=== PATIENT | male | born 1955 | race Caucasian/White ===

== ENCOUNTER → 2018-03-05 | Outpatient (CLI) | payer MEDICAID ==
[~2018-03-05] MED LIST: REGADENOSON 0.4 MG/5 ML SYRINGE IV ONE
--- NOTE | 2018-03-05 12:09 | ECHOF ---
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 This was a technically difficult study with suboptimal views. The left ventricular size is normal. There is severe concentric left ventricular hypertrophy. Ove rall left ventricular systolic function is normal with, an EF between 55 - 60 %. The right ventricle is normal in size. LA is severely dilated >40 ml/m2 The right atrium is normal in size. 3 ml of Lumason was utilized for enhancement of images. There is mild aortic valve sclerosis. Mild mitral annular calcification present. [id number] mitral regurgitation is present. Mild tricuspid regurgitation present. There is moderate to severe pulmonary hypertension. The rig ht ventricular systolic pressure, as measured by Doppler, is 54.92mmHg. The pulmonic valve was not well visualized. The aortic root size is normal. IVC Not well visulized. There is no pericardial effusion. CONCLUSIONS -------- 1. Sinus rhythm. 2. This was a technically difficult study with suboptimal views. 3. The left ventricular size is normal. 4. There is severe concentric left ventricular hypertrophy. 5. Overall left ventricular systolic function is normal with, an EF between 55 - 60 %. 6. The right ventricle is normal in size. 7. LA is severely dilated >40 ml/m2 8. The right atrium is normal in size. 9. 3 ml of Lumason was utilized for enhancement of images. 10. There is mild aortic valve sclerosis. 11. Mild mitral annular calcification present. 12. Zktomxyy-dz-iibmow mitral regurgitation is present. 13. Mild tricuspid regurgitation present. 14. There is moderate to severe pulmonary hypertension. 15. The right ventricular systolic pressure, as measured by Doppler, is 54.92mmHg. 16. The pulmonic valve was not well visualized. 17. The aortic root size is normal. 18. IVC Not well visulized. 19. There is no pericardial effusion. ASSESSMENT SERVICES MANAGER: Natalia Almendarez RDCS
--- NOTE | 2018-03-05 12:57 | NM ---
EXAMINATION TYPE: NM stress lexiscan cardiolite DATE OF EXAM: 03/05/2018 COMPARISON: NONE HISTORY: Rheumatic mitral valve TECHNIQUE: After the intravenous administration of 10.3 mCi Tc 99m Sestamibi - Cardiolite resting SP ECT images acquired 49 minutes post injection. The patient received 0.4mg Lexiscan, 27 mCi Tc 99m Sestamibi - Stress images obtained 40 minutes post injection FINDINGS: There is loss radiotracer accumulation along the inferior lateral wall throughout the SPECT images. The inferior wall appears to have greater loss on the resting images were as there is some e xtension of the defect along the lateral wall on the stress images which would suggest some ischemic change this location. Polar maps underestimate the ischemic changes. Ejection fraction of 50% is borderline normal. There is global hypokinesia IMPRESSION: 1. Defect along the inferior lateral wall.. Infarct stress-induced ischemic change appears to be pres ent especially noted along the lateral wall. This defect extends from the cardiac base to the cardiac apex. 2. Borderline ejection fraction of 50%. 3. Global hypokinesia.
--- NOTE | 2018-03-05 13:04 | EST ---
EXERCISE STRESS DATE OF SERVICE: 03/05/2018 AGE: 62 SEX: M HT: 72" WT: 415 PROTOCOL: Lexiscan Cardiolite Study HEART RATE REST: 57 BLOOD PRESSURE REST: 102/57 MAXIMUM HEART RATE ACHIEVED: 67 MAXIMUM BLOOD PRESSURE: 116/57 INDICATIONS: Chest pain. CLINICAL INFORMATION: STRESS DATA: Pretesting physical examination showed a heart rate of 57, pressure is 102/57 mmHg. Baseline EKG showed sinus mechanism. 0.4 mg of Lexiscan was given over 15 seconds per protocol. The max heart rate was 67 beats per minute and maximum pressure was 116/57 mmHg. Clinically the patient did not have any symptoms of chest pain or discomfort and the EKG did not show any significant ST or T-wave abnormalities concerning for ischemia. CONCLUSION: 1. Nondiagnostic electrocardiogram stress testing in response to Lexiscan. 2. Please follow up on the Cardiolite portion on a separate report. MMODL / IJN: [id number] /
== END | disposition home or self-care (01) ==
LOC: RADNMMAIN 07:32
PROVIDERS: ATTEND Internal Medicine Cardiovascular Disease
DX: I08.1 Rheumatic disorders of both mitral and tricuspid valves (principal); I27.20 Pulmonary hypertension, unspecified; R06.02 Shortness of breath; R93.1 Abnormal findings on diagnostic imaging of heart and coronary circulation
CPT/HCPCS: 93017; 93306; 78452; A9500; J2785; Q9950